=== PATIENT | male | born 1980 | race African-American/Black ===

== ENCOUNTER 2017-08-08 07:46 | Day surgery (SDC) | payer BC ==
[2017-08-07 10:54] VITALS: BMI 46.0
--- NOTE | 2017-08-08 12:47 | OP ---
DATE OF PROCEDURE: 08/08/2017 SURGEON: Denver Arreola M.D. PROCEDURE: Colonoscopy with biopsy. PREOPERATIVE DIAGNOSIS: Crohn's disease greater than 10 years of Crohn's colitis. PROCEDURE IN DETAIL: Informed consent was obtained from the patient. He was sedated with total intr avenous anesthesia. Rectal exam was performed and was unremarkable. The colonoscope was advanced to the distal most rectum; however, this was strictured and the colonoscope could not be passed through it. An exchange was made for a diagnostic endoscope. The endoscope was then advanced all the way a round to the cecum where the ileocecal valve and appendiceal orifice were clearly identified. There was an ulcer at the ileocecal valve. The terminal ileum could not be intubated. The colonic mucosa was normal from the cecum to 25 cm. Biopsies were taken in 4 quadrants every 10 centimeters for surv eillance of chronic inflammatory bowel disease of the colon. The distal 25 cm of the colon were stri ctured and with multiple white based ulcers consistent with Crohn's disease. Retroflexed views were not attempted in the rectum as it was tight and strictured. IMPRESSION: 1. Stricture and intermittent ulcers of the distal 25 centimeters. The stricture was too tight to p ass the colonoscope through. However, the diagnostic endoscope could be advanced all the way to the cecum. There were 2 small ulcer at the ileocecal valve, unable to intubate the terminal ileum with t he diagnostic endoscope. 2. Otherwise, normal colonic mucosa. Biopsies were taken in 4 quadrants every 10 centimeters. RECOMMENDATIONS: 1. Await histopathology. 2. Continue current medicines. 3. Follow up in [facility] Clinic in 2-3 weeks.
[2017-08-08] MEDS ORDERED: Lidocaine 1% PF 5 ML VIAL ONE (16:41)
== END 2017-08-08 13:30 | disposition home or self-care (01) ==
LOC: SDC 07:46
PROVIDERS: ATTEND Internal Medicine Gastroenterology
PROC: 0DBE8ZX Excision of Large Intestine, Via Natural or Artificial Opening Endoscopic, Diagnostic (ICD-10-PCS; principal; 2017-08-08)
PROC: 0DBC8ZX Excision of Ileocecal Valve, Via Natural or Artificial Opening Endoscopic, Diagnostic (ICD-10-PCS; principal; 2017-08-08)
DX: K50.10 Crohn's disease of large intestine without complications (principal); K52.9 Noninfective gastroenteritis and colitis, unspecified; K20.8 Other esophagitis; D63.8 Anemia in other chronic diseases classified elsewhere; D52.9 Folate deficiency anemia, unspecified; D51.3 Other dietary vitamin B12 deficiency anemia; Z98.890 Other specified postprocedural states
CPT/HCPCS: 88305; J2001